=== PATIENT | male | born 1995 | race Caucasian/White ===

== ENCOUNTER 2017-04-27 17:44 | Emergency (ER) | payer SELFPAY ==
[2017-04-27] MEDS ORDERED: HYDROcodone /APAP 5/325 1 EACH TABLET PO ONE (17:56)
[2017-04-27] MEDS ORDERED: SILVER SULFADIAZINE 20GM TUBE TP ONE (17:56)
[2017-04-27 18:41] VITALS: BP 126/70
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
== END 2017-04-27 18:17 | disposition home or self-care (01) ==
LOC: ED 17:44
DX: T23.001A Burn of unspecified degree of right hand, unspecified site, initial encounter (principal); X58.XXXA Exposure to other specified factors, initial encounter; Y93.9 Activity, unspecified; Y99.9 Unspecified external cause status
CPT/HCPCS: 99283; A9270-GY

== ENCOUNTER 2018-03-21 16:56 | Emergency (ER) | payer SELFPAY ==
[2018-03-21 17:10] VITALS: BP 147/83
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
[2018-03-21] MEDS: methylPREDNISolone ACETATE 40 MG/ML VIAL IM ONE (17:16)
[2018-03-21] MEDS: methylPREDNISolone ACETATE 80 MG/ML VIAL IM ONE ×2 (17:17)
== END 2018-03-21 17:21 | disposition home or self-care (01) ==
LOC: ED 16:56
DX: R21 Rash and other nonspecific skin eruption (principal)
CPT/HCPCS: 96372; 99283; J1040